=== PATIENT | male | born 1990 | race Caucasian/White ===

== ENCOUNTER → 2017-05-12 | Outpatient (CLI) | payer OTHER ==
[2017-05-12 08:40] LABS: DAYS OF ABSTINENCE 3; SEMEN TIME OF COLLECTION 731; SEMEN VOLUME 3.4 ML (>1.5)
[2017-05-12 08:41] LABS: METHOD OF COLLECTION MASTURBATION; SEMEN COLOR GRAY OR GRAY-WHITE (GRY/GRYWHTE); TYPE OF SPECIMEN CONTAINER STERILE CUP
[2017-05-12 08:51] LABS: SPERM VIABILITY STAIN NOT INDICATED % (>58%)
== END | disposition home or self-care (01) ==
LOC: C.LAB 08:17
PROVIDERS: ATTEND Obstetrics & Gynecology
DX: N46.9 Male infertility, unspecified (principal)